=== PATIENT | female | born 1945 ===

== ENCOUNTER 2025-04-29 01:07 | Emergency (ER) | payer MEDICARE, OTHER ==
[~2025-04-29] VITALS: Ht 162.6 cm; Wt 54.9 kg
[~2025-04-29 01:07] MED LIST: AMLO10 PO; Antivert25 MG PO; BENA20 PO; CIPRO500 MG PO; Flagyl500 MG PO; HYDURE500 PO; IBUP800 PO; LISI5 PO; METFORMIN HCL1000 MG PO
[2025-04-29] MEDS ORDERED: Robaxin750 MG PO (01:41)
[2025-04-29 01:45] VITALS: BP 143/64
[2025-04-29] MEDS ORDERED: RX Prepack 6 Tabs Oxycodone 5mg UD ONE (01:45)
== END 2025-04-29 02:12 | disposition home or self-care (01) ==
LOC: ER 01:07
DX: S82.001A Unspecified fracture of right patella, initial encounter for closed fracture (principal); I10 Essential (primary) hypertension; E11.9 Type 2 diabetes mellitus without complications; W18.30XA Fall on same level, unspecified, initial encounter; Z79.84 Long term (current) use of oral hypoglycemic drugs; Z79.899 Other long term (current) drug therapy; Z88.8 Allergy status to other drugs, medicaments and biological substances
CPT/HCPCS: A9270